=== PATIENT | female | born 1975 | race Caucasian/White ===

== ENCOUNTER 2016-05-23 22:34 | Emergency (ER) | payer SELFPAY ==
--- NOTE | ~2016-05-23 | CR173 ---
[facility] A Service of [facility] RADIOLOGY TEXT RESULTS PATIENT: ANN PINK LOCATION: CFTX : 73 UNIT #: [id number] AGE: [address]: ROLANDO CARMEN APRN SEX: F ORDER DR: [id number] [facility] [address] [place]. [place], [place] [address] [id number] MR#: [id number] Acc #: [id number] NAME: ANN PINK. : 1975 SEX: F STUDY DATE/TIME: 05/23/2016 22:11 UNIT: [facility] ROOM: STUDY DESCRIPTION: CR Knee 3 Views Rt Attending Physician: Rolando Carmen Aprn Ordering Physician: Rolando Carmen Aprn Primary Care Physician: No Primary Care Physician MEDICAL IMAGING REPORT This report is preliminary unless electronic signature is present EXAM Three-view right knee HISTORY Injured twisting knee jumping out of bed. Pain x1 week. FINDINGS AP and lateral projection of the knee shows smooth articular anatomy without indication of fracture or dislocation at the major weight-bearing surface of the knee. There is no indication of radiopaque foreign body about the knee surface or joint effusion. IMPRESSION Normal knee. Dictated by... Vanessa Dillard M.D. THIS IS AN ELECTRONICALLY VERIFIED REPORT Vanessa Dillard M.D. at 05/24/2016 6:34 PM BECKY/nancy TD: 05/24/2016 10:25 JOB #: [id number] MEDICAL IMAGING REPORT COPY
[~2016-05-23 22:34] MED LIST: INDOMETHACIN25 MG; OPANA ER40 MG; TOPAMAX PO; TRAZODONE PO; TRILEPTAL300 MG; ZOLOFT100 MG; [UNRECOGNIZED DRUG - OTHER]
== END 2016-05-24 00:44 | disposition home or self-care (01) ==
LOC: CFTX 22:34
DX: S83.421A Sprain of lateral collateral ligament of right knee, initial encounter (principal); F17.210 Nicotine dependence, cigarettes, uncomplicated; X50.1XXA Overexertion from prolonged static or awkward postures, initial encounter; Y92.009 Unspecified place in unspecified non-institutional (private) residence as the place of occurrence of the external cause
CPT/HCPCS: 29505; 73562; 99283